=== PATIENT | male | born 1975 | race African-American/Black ===

== ENCOUNTER 2017-02-15 19:42 | Emergency (ER) | payer MEDICAID, OTHER ==
[~2017-02-15] VITALS: Ht 167.6 cm; Wt 97.7 kg
[2017-02-15 20:14] VITALS: Ht 167.6 cm; Wt 97.7 kg
[2017-02-15 23:20] LABS: ADD SCAN DIFF NO
[2017-02-15 23:24] LABS: URINE BILIRUBIN (Dip) 1+ (NEGATIVE); URINE BLOOD (Dip) NEGATIVE (NEGATIVE); URINE COLOR DK. YELLOW (YELLOW); URINE GLUCOSE (Dip) NEGATIVE (NEGATIVE); URINE KETONES (Dip) 15 (NEGATIVE); URINE LEUKOCYTE ESTERASE (Dip) NEGATIVE (NEGATIVE); URINE NITRITE (Dip) NEGATIVE (NEGATIVE); URINE UROBILINOGEN (Dip) 0.2 E.U./dL (0.1-1.0)
[2017-02-15 23:24] LABS: ABNORMAL IP MESSAGE 1; HEMATOCRIT 40.7 % (42.0-52.0); HEMOGLOBIN 13.9 g/dl (14.0-18.0); MEAN CORPUSCULAR HEMOGLOBIN 30.3 pg (29.0-33.0); MEAN CORPUSCULAR HGB CONC 34.2 g/dl (32.0-37.0); MEAN CORPUSCULAR VOLUME 88.7 fl (82.0-101.0); MEAN PLATELET VOLUME 10.7 fl (7.4-10.4); PLATELET COUNT 260 10^3/UL (140-415); RED BLOOD COUNT 4.59 10^6/ul (4.70-6.10); RED CELL DISTRIBUTION WIDTH 13.7 % (11.5-14.5); WHITE BLOOD COUNT 10.7 10^3/ul (4.8-10.8)
[2017-02-15 23:27] LABS: ADD UMIC NO; URINE TOTAL PROTEIN (Dip) NEGATIVE (NEGATIVE)
[2017-02-15 23:30] LABS: ICTOTEST NEGATIVE (NEGATIVE)
[2017-02-16 00:20] LABS: ALBUMIN 4.6 g/dl (3.3-4.9); ALBUMIN/GLOBULIN RATIO 1.17; BILIRUBIN,INDIRECT 0.5 mg/dl (0-1.1); BILIRUBIN,TOTAL 0.5 mg/dl (0.2-1.3); CALCIUM 9.8 mg/dl (8.4-10.2); CREATININE 0.95 mg/dl (0.61-1.24); TOTAL PROTEIN 8.5 g/dl (6.1-8.1)
[2017-02-16 00:35] LABS: EOSINOPHILS # 0.4 10^3/ul (0.0-0.5); LYMPHOCYTES # 5.8 10^3/ul (0.8-2.9); MONOCYTE # 0.5 10^3/ul (0.3-0.9); PLATELET ESTIMATE PLT APPEAR ADEQUATE
[2017-02-16] MEDS ORDERED: OMEP20CA16 PO (00:49)
[2017-02-16 01:05] VITALS: BP 119/71; PULSE 86; RESP 18; TEMP 97.9
--- NOTE | 2017-03-04 06:40 | ERD ---
ER Documentation Chief Complaint Date/Time DATE: 03/04/17 TIME: 06:28 Chief Complaint MID UPPER ABD PAIN X 1 WEEK +N/V STATES HE HAS TAPE WORM HPI 41 year old male presents with CC of epigastric pain x 1 week. Associated Sx include N/V which subsided a few days ago. States that he is concerned that he may have a tape worm because he has been searching his symptoms online and saw a long worm like structure in his stool today. He denies hematochezia, hematemesis, fever, chills, anal pruritus, insatiable hunger, and heartburn. He denies any medical problems, or use of daily meds. He has not tried any meds for relief of Sx and reports no aggravating factors. Currently rates his pain a 6/10 in severity. Denies recent travel or sick contacts. ROS All systems reviewed and are negative except as per history of present illness. Medications Home Meds Active Scripts Omeprazole* (Omeprazole*) 20 Mg Capsule., 20 MG PO BID, #20 Prov:Alice Moncada PA-C 02/16/17 Allergies Allergies: Coded Allergies: No Known Allergy (Unverified , 02/15/17) PMhx/Soc Medical and Surgical Hx: pt denies Medical Hx, pt denies Surgical Hx Hx Alcohol Use: No Hx Substance Use: No Hx Tobacco Use: No Smoking Status: Never smoker Physical Exam Physical Exam GENERAL: Non-toxic. no acute distress LUNGS: Clear to auscultation. No accessory muscle use. No wheezing, no crackles. No signs or symptoms of respiratory distress. HEART: Regular rate and rhythm. No murmurs, clicks, rubs or gallops. ABDOMEN: Soft, nontender and nondistended. Bowel sounds positive. No rebound or guarding. No gross peritoneal signs. No Pal[place] or McBurney point tenderness. No gross masses. BACK: No midline tenderness, no costovertebral tenderness. EXTREMITIES: No peripheral cyanosis or edema. No focal pain or notable trauma. Full range of motion. Good capillary refill. NEURO: The patient moves all 4 extremities with 5/5 strength. Cranial nerves are grossly intact. Normal mental status for age. Good muscle tone. SKIN: There is no apparent rash, petechiae, erythema or swelling. Good skin turgor. Results 24 hrs Laboratory Tests Test 02/15/17 23:00 02/15/17 23:06 Urine Color DK. YELLOW Urine Clarity CLEAR Urine pH 5.5 Urine Specific [place] >=1.030 Urine Ketones 15 Urine Nitrite NEGATIVE Urine Bilirubin 1+ Urine Ictotest NEGATIVE Urine Urobilinogen 0.2 E.U./dL Urine Leukocyte Esterase NEGATIVE Urine Hemoglobin NEGATIVE Urine Glucose NEGATIVE% Urine Total Protein NEGATIVE White Blood Count 10.710^3/ul Red Blood Count 4.5910^6/ul Hemoglobin 13.9g/dl Hematocrit 40.7% Mean Corpuscular Volume 88.7fl Mean Corpuscular Hemoglobin 30.3pg Mean Corpuscular Hemoglobin Concent 34.2g/dl Red Cell Distribution Width 13.7% Platelet Count 30671^3/UL Mean Platelet Volume 10.7fl Neutrophils % 37.0% Lymphocytes % 54.0% Monocytes % 5.0% Eosinophils % 4.0% Neutrophils # 4.010^3/ul Lymphocytes # 5.810^3/ul Monocytes # 0.510^3/ul Eosinophils # 0.410^3/ul Platelet Estimate PLT APPEAR ADEQUATE Sodium Level 142mmol/L Potassium Level 4.0mmol/L Chloride Level 103mmol/L Carbon Dioxide Level 28mmol/L Anion Gap 15 Blood Urea Nitrogen 16mg/dl Creatinine 0.95mg/dl Glucose Level 91mg/dl Calcium Level 9.8mg/dl Total Bilirubin 0.5mg/dl Direct Bilirubin 0.00mg/dl Indirect Bilirubin 0.5mg/dl Aspartate Amino Transf (AST/SGOT) 25IU/L Alanine Aminotransferase (ALT/SGPT) 31IU/L Alkaline Phosphatase 66IU/L Total Protein 8.5g/dl Albumin 4.6g/dl Globulin 3.90g/dl Albumin/Globulin Ratio 1.17 Lipase 102U/L Procedures/MDM Patient presented with complaint of epigastric pain x 1 week with associated N/ V that had subsided, he denies any vomiting today. He was concerned that he may have a tape worm and was worried that it may eat into his brain because he saw what he believed to be a large tape worm in his stool. He took a photograph of this stool and showed it to me, I did not see anything that looked like it could be a tape worm. I explained to the patient that since he has had the pain for one week I could order routine labs to see if any other causes of his pain may be found. Patient had no tenderness on abdominal exam, no gaurding, and he appeared to be in NAD. I ordered basic labs and results were as follows: CBC: mild anemia of 13.9, patient told to discuss this with his PCP. Eosinophils WNL CMP: no severe electrolyte imbalance, normal liver and kidney function Lipase: WNL, pancreatitis unlikely UA: no leukocyte esterase or nitrite, pyelonephritis and UTI unlikely. I explained negative work up to patient and reassured him that he does not have eosinophilia on his CBC and I did not believe that the stool in his photo contained tape worms. However, I suggested follow-up wtih his PCP if he would like further testing, including O & P or other stool tests. AT this time I have low suspicion for acute surgical abdomen, pancreatitis, pyelonephritis, UTI, severe dehydration and sepsis. Patient's sx likely due to gastritis vs GERD, is stable for discharge and outpatient management, advised to follow-up with PCP in 1-2 days. Strict return precautions discussed. Departure Diagnosis: Primary Impression: Epigastric pain Additional Impression: Nausea Condition: Good Patient Instructions: Gastritis Vs. Ulcer, Epigastric Pain (Uncertain Cause) Additional Instructions: Call your primary care doctor TOMORROW for an appointment during the next 1-2 days.See the doctor sooner or return here if your condition worsens before your appointment time. Follow up with O & P with PCP or community clinic to check for signs of tapeworm if symptoms continue. Alice Moncada PA-C March 04, 2017 06:40
== END 2017-02-16 00:54 | disposition home or self-care (01) ==
LOC: FTE 19:42
DX: R10.13 Epigastric pain (principal); R11.0 Nausea
CPT/HCPCS: 36415; 80053; 81003; 83690; 85025; 99283